=== PATIENT | female | born 1955 | race Two or more races ===

== ENCOUNTER 2025-05-26 13:56 | Observation (INO) ==
--- NOTE | 2025-05-26 14:27 | Emergency Department Note ---
Impression & Plan Ambulatory dysfunction, Lumbar transverse process fracture, Fracture of left superior pubic ramus ED Provider Note HISTORY OF PRESENT ILLNESS: Patient is a 70-year-old female presenting with low back pain and ambulatory dysfunction. Patient fell 3 days ago. She was found to have a closed left olecranon fracture. Family at bedside reports that she has been unable to ambulate in the last 3 days secondary to pain in her low back. She reportedly was at [facility] today to have surgery on her left elbow. She underwent surgery and she was referred here secondary to her inability to ambulate. Family reports that patient is normally ambulatory without any assistive devices at home. She is currently complaining of pain in her low back that radiates diffusely to either side. She is also complaining of pain in her left inguinal region. Unknown if she hit her head when she fell 3 days ago. ROS: as above PHYSICAL EXAM: Constitutional: Patient appears in no acute distress. HENT: Head: Normocephalic and atraumatic. Eyes: EOMI, PERRL Mouth/Throat: Mucous membranes moist. Neck: Trachea midline. Neck supple. No midline cervical spine tenderness to palpation. Cardiovascular: RRR, No murmurs, rubs or gallops. Intact distal pulses. Pulmonary/Chest: No respiratory distress. Breath sounds clear and equal bilaterally. No wheezes or rales. Abdominal: Abdomen soft, no tenderness, rebound or guarding. Back: Lower lumbar midline tenderness to palpation. No step-offs or deformities. No open wounds. Patient unable to straight leg raise bilaterally secondary to pain. Musculoskeletal: No edema, tenderness or deformity noted. Skin: Warm and dry. No rash, erythema, pallor or cyanosis Psychiatric: Appropriate mood and affect for situation. Neurological: Alert and keenly responsive. CN II-XII grossly intact MDM: - Vitals signs stable. - History obtained via patient's family, given patient does not speak Mohawk. History as above. - Chronic conditions affecting care: None - Differential diagnoses include, but are not limited to: Compression fracture; transverse process fracture; femur fracture; pelvic fracture; contusion; muscle spasm - Order placed for continuous cardiac monitoring. At this time, monitor showed rate of 75 bpm with normal sinus rhythm, per my interpretation. - External medical records reviewed. - Laboratory workup interpreted by myself showed normal WBC; anemia (Hgb 9.1); stable electrolytes - Patient initially given 25 mcg IV fentanyl. After going for CT, pain back to 8/10. Given 50 mcg IV fentanyl. - CT head wo contrast negative for acute intracranial pathology - CT cervical spine wo contrast negative for acute pathology - CT lumbar spine wo contrast showed acute fractures of the left L2, L3 and L4 transverse processes - CT pelvis wo contrast showed subtle nondisplaced fracture of the right sacral ala and nondisplaced fracture of the left superior pubic ramus. - Discussed spinal fractures with orthopedic spinal surgeon on-call, Dr. Luther, at 15:27. He reports that these fractures are nonoperative and recommend pain management and PT/OT assessment. - Patient still having significant pain in the emergency department. She has been nonambulatory for the last 3 days secondary to pain. Will plan to admit to hospitalist service for pain management and PT/OT assessment. Did discuss this with the patient's family at bedside who are agreeable. Patient would be agreeable for placement in rehab if that was deemed necessary. - Discussion was had with renal case manager about patient's case and need for admission - Hospitalist, Dr. Chavez, consulted for admission at 16:16. - Patient admitted to [facility] hospitalist service for further evaluation and management. ASSESSMENT AND PLAN: Diagnosis: Ambulatory dysfunction; multiple lumbar transverse process fractures; fracture of left superior pubic ramus Plan: admit Past Med/Surg History Problem List (Updated 05/26/25 @ 16:13 by Ariadne Alexis MD) Fracture of left superior pubic ramus (Acute) Lumbar transverse process fracture (Acute) Ambulatory dysfunction (Acute) Fall at home (Acute) Closed olecranon fracture (Acute) Social History Smoking Status: Former smoker Preferred Language: Mohawk Feels Safe at Home: Yes Home Meds Previous Rx's Medication Instructions Recorded oxycodone 5 mg tablet 5 mg PO Q6H PRN pain #14 tabs 05/24/25 Results & Data (ED) Vital Signs Vital Signs - 24 hr 05/26/25 14:00 05/26/25 14:40 05/26/25 14:41 Temperature 36.6 C Temperature Source Temporal Artery Scan Pulse Rate 73 Pulse Rate [Apical] 75 Pulse Strength [Apical] Normal Respiratory Rate 18 17 Respiratory Effort / Characteristics Non-Labored Spontaneous Respiratory Depth Normal Respiratory Pattern Regular Blood Pressure 112/55 L Blood Pressure [Right Arm] 121/70 Blood Pressure Mean 74 Blood Pressure Mean [Right Arm] 87 Pulse Oximetry 91 91 92 Oxygen Delivery Method Room Air Room Air Room Air Sepsis Recent Fever Within 48 Hours No Sepsis New/Unexplained Change in Mental Status No Sepsis Action Taken by Nursing No Action Required Laboratory Data 05/26/25 14:30 05/26/25 14:30 Lab Results 05/26/25 Range/Units 14:30 WBC 7.63 (4.8-10.8) K/ul RBC 3.20 L (4.20-5.40) M/uL Hgb 9.1 L (12.0-16.0) g/dl Hct 29.4 L (37.0-47.0) % MCV 91.9 (80.0-100.0) fL MCH 28.4 (25.0-34.0) pg MCHC 31.0 L (32.0-36.0) g/dL RDW Std Deviation 50.4 H (36.4-46.3) fL RDW Coeff of Payal 14.8 H (11.5-14.5) % Plt Count 80 L (130-400) K/uL MPV 12.1 (9.4-12.4) fL Immature Gran % (Auto) 0.5 % Neut % (Auto) 82.1 % Lymph % (Auto) 9.8 % Falls % (Auto) 4.5 % Eos % (Auto) 2.2 % Baso % (Auto) 0.9 % Neut # (Auto) 6.26 (1.40-6.50) K/uL Lymph # (Auto) 0.75 L (1.20-3.40) K/uL Falls # (Auto) 0.34 (0.11-0.59) K/uL Eos # (Auto) 0.17 (0.00-0.50) K/uL Baso # (Auto) 0.07 (0.00-0.20) K/uL Immature Gran # (Auto) 0.04 (0.01-0.20) K/uL Platelet Estimate Decreased L (Normal) Sodium 143 (136-145) mmol/L Potassium 3.8 (3.5-5.1) mmol/L Chloride 109 H (98-107) mmol/L Carbon Dioxide 26 (21-32) mmol/L Anion Gap 8 (3-11) BUN 14 (6-23) mg/dl Creatinine 0.74 (0.6-1.2) mg/dl Est Cr Clr Drug Dosing 61.7 ml/min eGFR 85.91 BUN/Creatinine Ratio 18.9 (10-20) Glucose 105 H (70-99(Fasting)) mg/dl Calcium 8.0 L (8.6-10.3) mg/dl Total Bilirubin 0.4 (0.2-1.0) mg/dl AST 34 (13-39) U/L ALT 22 (7-52) U/L Alkaline Phosphatase 59 (34-104) U/L Total Protein 6.1 (6.0-8.3) gm/dl Albumin 3.4 (3.4-5.0) gm/dl Globulin 2.7 (2.5-4.0) gm/dl Albumin/Globulin Ratio 1.3 (0.9-2) Administered Medications Discontinued Medications Fentanyl Citrate (Fentanyl Citrate Pf 100 Mcg/2 Ml Vial) 25 mcg IV NOW STA Stop: 05/26/25 14:23 Last Admin: 05/26/25 14:37 Dose: 25 mcg Documented By: ISABEL Fentanyl Citrate (Fentanyl Citrate Pf 100 Mcg/2 Ml Vial) 50 mcg IV NOW STA Stop: 05/26/25 15:28 Last Admin: 05/26/25 15:37 Dose: 50 mcg Documented By: TAHIRA Imaging Data Radiologist's Impression: Lumbar Spine CT 05/26/25 14:22 CT OF THE LUMBAR SPINE CLINICAL HISTORY: acute low back pain trauma COMPARISON STUDY: No previous studies for comparison. TECHNIQUE: Helical axial images of the lumbar spine were obtained. Sagittal and coronal reconstructions were viewed. Automated exposure control was utilized for the study. A dose lowering technique was utilized adhering to the principles of ALARA. FINDINGS: There are acute fractures of the left L2, L3, and L4 transverse processes. No vertebral body fractures are visualized. There is no evidence of spinal stenosis. No paraspinal hematomas are visualized. IMPRESSION: 1. Acute fractures of the left L2, L3, and L4 transverse processes ACT 112: Negative or not required by law. Electronically signed by: Robles Moe M.D. 05/26/2025 3:[address] 05/26/25 14:22 CT SCAN OF THE PELVIS WITHOUT IV CONTRAST CLINICAL HISTORY: Low back pain. Left hip pain. COMPARISON STUDY: X-rays of the right hip and pelvis dated 05/24/2025. TECHNIQUE: CT scan of the pelvis is performed from the pelvic inlet to the proximal femora. Images are reviewed in the axial, sagittal, and coronal planes. IV contrast was not administered for this examination. A dose lowering technique was utilized adhering to the principles of ALARA. FINDINGS: The skeletal structures are osteopenic. There is a subtle nondisplaced fracture of the right sacral ala, best seen on axial images #221-276. This reaches the sacroiliac joint. There is a parasymphyseal fracture of the superior left pubic ramus seen on axial image #545 and coronal image #23. No additional acute fracture is seen involving the hips or bony pelvis. There is also a nondisplaced left transverse process fracture of L4 seen on image #13. There is no avascular necrosis of the femoral heads. There is only mild degenerative change seen in the hips. No lytic or blastic lesion is seen. The regional musculature is normal as visualized. The bladder is distended but otherwise normal in appearance. The uterus and adnexa are normal as imaged. Imaged bowel loops show no evidence of obstruction. There is no free fluid in the pelvis. Atherosclerotic calcification is seen in the iliac vessels. There is a fat- containing infraumbilical hernia. There is no pelvic sidewall or inguinal lymphadenopathy. IMPRESSION: 1. Subtle nondisplaced fracture of the right sacral ala. 2. Nondisplaced fracture of the parasymphyseal left superior pubic ramus. 3. Left transverse process fracture of L4. 4. The proximal femora are intact. 5. Additional findings as above. ACT 112: Negative or not required by law. Electronically signed by: Tony Villarreal M.D. 05/26/2025 3:[address] 05/26/25 14:27 CT SCAN OF THE BRAIN WITHOUT IV CONTRAST CLINICAL HISTORY: COMPARISON STUDY: Head trauma TECHNIQUE: Unenhanced axial CT scan of the brain was performed from the vertex to the skull base. A dose lowering technique was utilized adhering to the principles of ALARA. CT DOSE: FINDINGS: There is basal ganglial mineralization. No intra or extra-axial mass lesions are visualized. There is no CT evidence of acute cortical infarction. There is no hydrocephalus. There is no midline shift. There is no evidence of acute hemorrhage. Hypodensities within the periventricular white matter likely on a small vessel ischemic basis. No orbital lesions are visualized. No calvarial fractures are identified. IMPRESSION: No acute intracranial findings. ACT 112: Negative or not required by law. Electronically signed by: Robles Moe M.D. 05/26/2025 3:[address] 05/26/25 14:32 CT SCAN OF THE CERVICAL SPINE CLINICAL HISTORY: Fall COMPARISON STUDY: No priors TECHNIQUE: CT scan of the cervical spine is performed from the skull base to the upper thoracic spine. Images are reviewed in the axial, sagittal, and coronal planes. IV contrast was not administered for this examination. A dose lowering technique was utilized adhering to the principles of ALARA. CT DOSE: 2753.04 mGy.cm FINDINGS: Skeletal structures: The skeletal structures are osteopenic. There is no evidence of fracture or subluxation involving the cervical spine. Vertebral body height and alignment are maintained. There is straightening of cervical lordosis. Small anterior osteophytes are noted in the lower cervical region. The odontoid process and lateral masses are intact. The atlantoaxial articulation is preserved noting productive degenerative change. The spinous processes appear intact. Intervertebral discs: There is moderate disc space narrowing at C5-C6. The remaining disc spaces are maintained. Central canal: A posterior disc osteophyte complex at C5-C6 may contribute to mild acquired compromise the central canal. Soft tissues: The prevertebral and paraspinous soft tissues are within normal limits. Atherosclerotic calcification is seen in the carotid bulbs. Calvarium: The visualized calvarium at the skull base appears intact. Brain parenchyma: Partially visualized brain parenchyma at the skull base is within normal limits. Sinuses and mastoids: The visualized paranasal sinuses are clear. The mastoid air cells are well pneumatized. Lung apices: Clear as visualized. IMPRESSION: There is no evidence of fracture or subluxation involving the cervical spine. ACT 112: Negative or not required by law. Electronically signed by: Tony Villarreal M.D. 05/26/2025 3:16 PM Discharge Plan Visit Data Chief Complaint: Leg Weakness, Bilateral Stated Complaint: LOST OF MOVEMENT IN HER LEGS ED Provider: Ariadne Alexis Discharge Problem: Ambulatory dysfunction, Lumbar transverse process fracture, Fracture of left superior pubic ramus Condition: Fair Forms Stand Alone Forms: [facility] Prescriptions Prescriptions: No Action oxycodone 5 mg tablet 5 mg PO Q6H PRN (Reason: pain) Qty: 14 0RF Referrals Referrals: PCP,NO [Primary Care Provider] -
[2025-05-26 14:50] LABS: Hematocrit (blood only) 29.4 % (37.0-47.0); Hemoglobin 9.1 g/dl (12.0-16.0); Mean Corpuscular Hemoglobin 28.4 pg (25.0-34.0); Mean Corpuscular Volume 91.9 fL (80.0-100.0); RDW Standard Deviation 50.4 fL (36.4-46.3); Red Blood Count 3.20 M/uL (4.20-5.40); White Blood Count 7.63 K/ul (4.8-10.8)
[2025-05-26 14:57] LABS: Alanine Aminotransferase 22.0 U/L (7-52); Albumin Globulin Ratio 1.3 (0.9-2); Albumin Level 3.4 gm/dl (3.4-5.0); Alkaline Phosphatase 59.0 U/L (34-104); Anion Gap 8.0 (3-11); Bilirubin,Total 0.4 mg/dl (0.2-1.0); Blood Urea Nitrogen 14.0 mg/dl (6-23); Calcium 8.0 mg/dl (8.6-10.3); Carbon Dioxide 26.0 mmol/L (21-32); Chloride 109.0 mmol/L (98-107); Creatinine Clr Calc Pharmacy 61.7 ml/min; Globulin 2.7 gm/dl (2.5-4.0); Glucose 105.0 mg/dl (70-99(Fasting)); Potassium 3.8 mmol/L (3.5-5.1); Sodium 143.0 mmol/L (136-145); Total Protein 6.1 gm/dl (6.0-8.3)
--- NOTE | 2025-05-26 15:18 | CT Scan Report ---
CT SCAN OF THE CERVICAL SPINE CLINICAL HISTORY: Fall COMPARISON STUDY: No priors TECHNIQUE: CT scan of the cervical spine is performed from the skull base to the upper thoracic spine . Images are reviewed in the axial, sagittal, and coronal planes. IV contrast was not administered fo r this examination. A dose lowering technique was utilized adhering to the principles of ALARA. CT DOSE: 2753.04 mGy.cm FINDINGS: Skeletal structures: The skeletal structures are osteopenic. There is no evidence of fracture or subl uxation involving the cervical spine. Vertebral body height and alignment are maintained. There is s traightening of cervical lordosis. Small anterior osteophytes are noted in the lower cervical region. The odontoid process and lateral masses are intact. The atlantoaxial articulation is preserved notin g productive degenerative change. The spinous processes appear intact. Intervertebral discs: There is moderate disc space narrowing at C5-C6. The remaining disc spaces are maintained. Central canal: A posterior disc osteophyte complex at C5-C6 may contribute to mild acquired compromis e the central canal. Soft tissues: The prevertebral and paraspinous soft tissues are within normal limits. Atherosclerotic calcification is seen in the carotid bulbs. Calvarium: The visualized calvarium at the skull base appears intact. Brain parenchyma: Partially visualized brain parenchyma at the skull base is within normal limits. Sinuses and mastoids: The visualized paranasal sinuses are clear. The mastoid air cells are well pneu matized. Lung apices: Clear as visualized. IMPRESSION: There is no evidence of fracture or subluxation involving the cervical spine. ACT 112: Negative or not required by law. Electronically signed by: Tony Villarreal M.D. 05/26/2025 3:16 PM
--- NOTE | 2025-05-26 15:19 | CT Scan Report ---
CT SCAN OF THE BRAIN WITHOUT IV CONTRAST CLINICAL HISTORY: COMPARISON STUDY: Head trauma TECHNIQUE: Unenhanced axial CT scan of the brain was performed from the vertex to the skull base. A dose lowering technique was utilized adhering to the principles of ALARA. CT DOSE: FINDINGS: There is basal ganglial mineralization. No intra or extra-axial mass lesions are visualized. There is no CT evidence of acute cortical infarction. There is no hydrocephalus. There is no midline shift. T here is no evidence of acute hemorrhage. Hypodensities within the periventricular white matter likely on a small vessel ischemic basis. No orbital lesions are visualized. No calvarial fractures are iden tified. IMPRESSION: No acute intracranial findings. ACT 112: Negative or not required by law. Electronically signed by: Robles Moe M.D. 05/26/2025 3:18 PM
--- NOTE | 2025-05-26 15:25 | CT Scan Report ---
CT OF THE LUMBAR SPINE CLINICAL HISTORY: acute low back pain trauma COMPARISON STUDY: No previous studies for comparison. TECHNIQUE: Helical axial images of the lumbar spine were obtained. Sagittal and coronal reconstruct ions were viewed. Automated exposure control was utilized for the study. A dose lowering technique was utilized adhering to the principles of ALARA. FINDINGS: There are acute fractures of the left L2, L3, and L4 transverse processes. No vertebral body fractures are visualized. There is no evidence of spinal stenosis. No paraspinal hematomas are visualized. IMPRESSION: 1. Acute fractures of the left L2, L3, and L4 transverse processes ACT 112: Negative or not required by law. Electronically signed by: Robles Moe M.D. 05/26/2025 3:22 PM
--- NOTE | 2025-05-26 15:27 | CT Scan Report ---
CT SCAN OF THE PELVIS WITHOUT IV CONTRAST CLINICAL HISTORY: Low back pain. Left hip pain. COMPARISON STUDY: X-rays of the right hip and pelvis dated 05/24/2025. TECHNIQUE: CT scan of the pelvis is performed from the pelvic inlet to the proximal femora. Images a re reviewed in the axial, sagittal, and coronal planes. IV contrast was not administered for this exa mination. A dose lowering technique was utilized adhering to the principles of ALARA. FINDINGS: The skeletal structures are osteopenic. There is a subtle nondisplaced fracture of the righ t sacral ala, best seen on axial images #221-276. This reaches the sacroiliac joint. There is a zachery ymphyseal fracture of the superior left pubic ramus seen on axial image #545 and coronal image #23. N o additional acute fracture is seen involving the hips or bony pelvis. There is also a nondisplaced l eft transverse process fracture of L4 seen on image #13. There is no avascular necrosis of the femora l heads. There is only mild degenerative change seen in the hips. No lytic or blastic lesion is seen. The regional musculature is normal as visualized. The bladder is distended but otherwise normal in a ppearance. The uterus and adnexa are normal as imaged. Imaged bowel loops show no evidence of obstruc tion. There is no free fluid in the pelvis. Atherosclerotic calcification is seen in the iliac vessel s. There is a fat-containing infraumbilical hernia. There is no pelvic sidewall or inguinal lymphaden opathy. IMPRESSION: 1. Subtle nondisplaced fracture of the right sacral ala. 2. Nondisplaced fracture of the parasymphyseal left superior pubic ramus. 3. Left transverse process fracture of L4. 4. The proximal femora are intact. 5. Additional findings as above. ACT 112: Negative or not required by law. Electronically signed by: Tony Villarreal M.D. 05/26/2025 3:26 PM
[2025-05-26 15:38] LABS: Platelet Count 80 K/uL (130-400)
[2025-05-26 15:39] LABS: Immature Granulocytes # (auto) 0.04 K/uL (0.01-0.20); Immature Granulocytes % (auto) 0.5 %
--- NOTE | 2025-05-26 17:33 | History & Physical Report ---
Date of Service May 26, 2025 Assessment & Plan (1) Fracture of left superior pubic ramus: (2) Lumbar transverse process fracture: (3) Ambulatory dysfunction: (4) Osteoporosis: (5) Inflammatory bowel disease: (6) Anxiety: Plan Osteoporotic fracturesolecranon, transverse processes of lumbar spine, sacrum, pubic ramus - olecranon fracture is surgically repaired. The other fractures are nonsurgical - outpatient bone health treatment with the exception of starting calcium plus vitamin D - pain controllidocaine patch lumbar area, Miacalcin nasal spray daily, scheduled Tylenol, oxycodone as needed moderate pain, Dilaudid as needed severe pain. Held on any NSAIDs due to her anaphylactic reaction to diclofenac (confirmed by son-in-law) - TLSO brace to see if it helps with the lumbar type pain - PT/OT eval and treat, discussed high probability of needing rehab inflammatory bowel disease - mesalamine 800 mg 3 times daily as per home dosing anxiety - sertraline 150 mg daily, Xanax 1 mg at bedtime as needed insomnia, as per home dosing (over the long-term, probably will want to consider trying a different medication for sleep to start to get away from the alprazolam) DVT prophylaxis - Lovenox thrombocytopenia - not low enough to preclude Lovenox, etiology not entirely clear. Does not have transaminitis or other findings to suggest tickborne illness. Follow. Anemia none of her fractures would really be accompanied by significant amount of blood loss, I suspect this is probably chronicfollow-up hemoglobin in the morning. Check iron studies/B12. History of Present Illness Chief Complaint: Unable to walk Primary Care Provider: NO PCP patient is a very pleasant 70-year-old female who presents unable to walk. She speaks Bengali, she prefers right now using her daughter as her it lead, I did offer medical billing supervisor services. Patient has recently come to the [place] to live with her daughter. She was cleaning in the house and was up on about a 2 step ladder about 3 days ago, fell striking her arm as well as her side. She came promptly to the ER and was found to have an olecranon fracture. She was sent home with orthopedics follow-up. Unfortunately she has been unable to walk really without tremendous pain sinceto the point where really functionally she cannot walk. The pain is predominantly in her back and wraps around to the front, in her pelvis, and obviously in her elbow beforehowever, she just had surgery on her elbow and right now she still has a nerve block keeping the whole area numb. Otherwise she has a degree of pain across her upper abdomen that makes it feel a little bit tight to breathe, but she denies any actual shortness of breath. She seems to have been in her usual state of health before the fall. She had surgery, and after surgery she was still in a tremendous amount of pain in her back and pelvis and unable to walk, and she was then directed from the surgery center here to the ER. Past medical history includes anxiety/depression, inflammatory bowel disease, osteoporosis past surgical history includes a prior orthopedic procedure on her left arm, and cholecystectomy no alcohol no tobacco Allergies Allergy/AdvReac Type Severity Reaction Status Date / Time diclofenac Allergy Severe Anaphylaxis Verified 05/26/25 17:54 Home Medications Medication Instructions Recorded Confirmed Type oxycodone 5 mg tablet 5 mg PO Q6H PRN pain #14 tabs 05/24/25 Rx Past Med/Surg History Problem List (Updated 05/26/25 @ 18:00 by Rocky Chavez DO) Anxiety Inflammatory bowel disease Osteoporosis Fracture of left superior pubic ramus (Acute) Lumbar transverse process fracture (Acute) Ambulatory dysfunction (Acute) Fall at home (Acute) Closed olecranon fracture (Acute) Social History Smoking Status: Former smoker Preferred Language: Macanese Feels Safe at Home: Yes Review of Systems Review of Systems: All systems reviewed & are unremarkable except as noted in HPI & below Physical Exam Physical Exam: awake alert oriented pleasant but laying very still in the bed. HEENT normocephalic atraumatic mucous membranes moist. Lungs are clear to auscultation bilaterally no rales rhonchi or wheeze with good effort. Cardio is regular without rubs murmurs or gallops. Abdomen is soft nondistended nontender no masses organomegaly. Extremities without sinus clubbing or edema no calf tenderness. Neuro shows cranial nerves II through XII to be grossly intact gross motor and sensory intact with the exception of her left arm that is still numb from a nerve block. Skin shows no rashes no pallor or icterus. Labs and diagnostics noted. Results & Data Results & Data Vital Signs (Past 12 Hours) Vital Signs Temp Pulse Pulse Resp BP BP Pulse Ox 05/26/25 16:00 73 14 135/71 98 05/26/25 14:41 92 05/26/25 14:40 75 17 121/70 91 05/26/25 14:00 97.9 F 73 18 112/55 L 91 O2 Del Method 05/26/25 16:00 05/26/25 14:41 Room Air 05/26/25 14:40 Room Air 05/26/25 14:00 Room Air Code Status & VTE Plan VTE Prophylaxis Plan VTE Prophylaxis will be ordered: Yes PG Care Time/CCT Total # of Minutes Spent Total Time Spent with Patient: Total time spent is greater than 50% in coordination of care (as documented) at patient's floor/unit and/or counseling patient: Coding Level of Care Code 39343 INT INP/OBS CARE 3/75MIN Diagnoses Fracture of left superior pubic ramus S32.512A Lumbar transverse process fracture S32.009A Ambulatory dysfunction R26.2 Osteoporosis M81.0 Inflammatory bowel disease K52.9 Anxiety F41.9
[2025-05-26] MEDS: HYDROmorphone INJ 0.5 MG/0.5 ML SYR IV STA (18:55)
[2025-05-26] MEDS ORDERED: MAGNESIUM HYDROXIDE SUSP 30 ML UDC PO PRN (21:56)
[2025-05-26] MEDS ORDERED: ONDANSETRON INJ 2 MG/ML 2 ML VIAL IV PRN (21:56)
[2025-05-26] MEDS ORDERED: ALUMINUM/MAGNESIUM SUSP 30 ML UDC PO PRN (21:56)
[2025-05-26] MEDS ORDERED: POLYETHYLENE (MIRALAX) 17 GM PACK PO PRN (21:56)
[2025-05-26] MEDS: ACETAMINOPHEN 325 MG TAB PO SCH (22:45)
[2025-05-26] MEDS: MESALAMINE 800 MG TABCR PO SCH (22:46)
[2025-05-26] MEDS: CALCIUM 600MG + VIT D 400 IU TAB PO SCH (22:47)
[2025-05-26] MEDS: HYDROmorphone INJ 0.5 MG/0.5 ML SYR IV PRN (22:59)
[2025-05-26] MEDS: LIDOCAINE 5% 1 PATCH TD SCH (23:37)
[2025-05-27 07:28] LABS: Hematocrit (blood only) 25.9 % (37.0-47.0); Hemoglobin 8.5 g/dl (12.0-16.0); Immature Granulocytes # (auto) 0.04 K/uL (0.01-0.20); Immature Granulocytes % (auto) 0.5 %; Mean Corpuscular Hemoglobin 29.1 pg (25.0-34.0); Mean Corpuscular Volume 88.7 fL (80.0-100.0); Platelet Count 83 K/uL (130-400); RDW Standard Deviation 49.3 fL (36.4-46.3); Red Blood Count 2.92 M/uL (4.20-5.40); White Blood Count 7.72 K/ul (4.8-10.8)
[2025-05-27 07:51] LABS: Anion Gap 7.0 (3-11); Blood Urea Nitrogen 12.0 mg/dl (6-23); Calcium 8.7 mg/dl (8.6-10.3); Carbon Dioxide 27.0 mmol/L (21-32); Chloride 106.0 mmol/L (98-107); Creatinine Clr Calc Pharmacy 73.1 ml/min; Glucose 111.0 mg/dl (70-99(Fasting)); Iron 27.0 mcg/dl (35-150); Potassium 3.7 mmol/L (3.5-5.1); Sodium 140.0 mmol/L (136-145); Total Iron Binding Cap Calc 206.0 mcg/dl (250-450); Transferrin 147.0 mg/dl (200-360); Transferrin (FE) Percent Satur 13.0 % (15-50)
[2025-05-27 08:10] LABS: Ferritin 224.9 ng/ml (8-388)
[2025-05-27] MEDS: CALCITONIN SALMON NA 200 IU/AC 3.7 ML BTL SCH (08:25)
[2025-05-27] MEDS: SERTRALINE HCL 50 MG TABLET PO SCH (08:25)
[2025-05-27] MEDS: ENOXAPARIN INJ 40 MG/0.4 ML SYR SQ SCH (08:26)
--- NOTE | 2025-05-27 08:48 | Hospitalist Progress Note ---
Date of Service May 27, 2025 Assessment & Plan (1) Anxiety: (2) Inflammatory bowel disease: (3) Osteoporosis: (4) Fracture of left superior pubic ramus: Plan José is a very pleasant [place]rugu[place] speaking 70 Y O female with PMH of IBD and Anxiety disorder presented with low back pain and ambulatory dysfunction. She fell 3 days ago and was found to have closed left olecranon fracture. Imaging reveals fracture in multiple site including acute fractures of left L2, L3 and L4 Transverse processes , Non displaced fracture of right sacral miguel, parasymphyseal left superior pubic ramus. Olecranon fracture is surgically repaired. The other fractures are nonsurgical. She is currently being admitted for pain management likely due to multiple fractures. #Multiple osteoporotic fractures - pain controllidocaine patch lumbar area, Miacalcin nasal spray daily, scheduled Tylenol, oxycodone as needed moderate pain, Dilaudid 1mg every 4 hr. Held on any NSAIDs due to her anaphylactic reaction to diclofenac (confirmed by son-in-law) - TLSO brace to see if it helps with the lumbar type pain - PT/OT eval and treat, discussed high probability of needing rehab #Inflammatory bowel disease - mesalamine 800 mg 3 times daily as per home dosing # anxiety - sertraline 150 mg daily, Xanax 1 mg at bedtime as needed insomnia, as per home dosing (over the long-term, probably will want to consider trying a different medication for sleep to start to get away from the alprazolam) #Thromobocytopenia -Plt count : 83 today -Not enough to preclude Lovenox # Anemia none of her fractures would really be accompanied by significant amount of blood loss, I suspect this is probably chronicfollow-up hemoglobin in the morning. Check iron studies/B12. Dispo: med/surg Code: full code DVT Prophylaxis: Lovenox Admission and Anticipated Discharge Date Admission Date: May 26, 2025 Supervising Physician Co-Signing Physician Notes I personally examined the patient and verified all alvarez points of history and exam, discussed case, and agree with decision making with Dr Cleemnt notes that while she still has a good bit of pain with movement, she feels significantly better than before, and the TLSO brace seems to be helping quite a bit. She is pleased with how she did with therapy (although on review of therapy notes, her functional status is currently quite limited. Vitals noted, in general she is awake and alert pleasant no distress. HEENT normocephalic atraumatic mucous membranes moist. Breathing unlabored no accessory muscle use good effort. Skin without rashes pallor or icterus. Neuro without focal deficits. Osteoporotic fractures of L-spine transverse processes, sacral rosalind, pubic ramuspain control, supportive care, PT/OT, right now looks like she would almost certainly need rehab. Continue to follow. Outpatient bone health workup and treatment. Otherwise as above. Subjective Patient was seen in the bedside this morning. [place] translator/interpreter was used for communication. She mentioned that her pain is about the same as yesterday. She would like to get increased dose of pain medicine. Explained her about significance of Lovenox while at hospital. She denied any new concerns/questions Review of Systems Review of Systems: All systems reviewed & are unremarkable except as noted in HPI & below Physical Exam Physical Exam: awake alert oriented pleasant but laying very still in the bed. HEENT normocephalic atraumatic mucous membranes moist. Lungs are clear to auscultation bilaterally no rales rhonchi or wheeze with good effort. Cardio is regular without rubs murmurs or gallops. Abdomen is soft nondistended nontender no masses organomegaly. Extremities without sinus clubbing or edema no calf tenderness. Neuro shows cranial nerves II through XII to be grossly intact gross motor and sensory intact with the exception of her left arm that is still numb from a nerve block. Skin shows no rashes no pallor or icterus. Labs and diagnostics noted. Results & Data Results & Data Vital Signs (Past 12 Hours) Vital Signs Temp Pulse Pulse Resp BP Pulse Ox O2 Del Method 05/27/25 07:04 36.6 C 90 16 110/68 92 Room Air 05/26/25 21:45 Nasal Cannula 05/26/25 21:45 36.5 C 88 16 103/59 L 93 Room Air 05/26/25 20:48 85 28 H O2 Flow Rate 05/27/25 07:04 05/26/25 21:45 2 05/26/25 21:45 05/26/25 20:48 Resident Activity Tracking Resident Involvement: Resident Care Provided Care Provided: Adult Hospital Medicine
[2025-05-27] MEDS: REMOVE LIDODERM PATCH SCH (10:15)
[2025-05-27] MEDS: CYANOCOBALAMIN (B-12) 500 MCG TABLET PO SCH (10:15)
[2025-05-27] MEDS: FERROUS GLUCONATE 324 MG TAB PO SCH (10:15)
[2025-05-27] MEDS: CHOLECALCIFEROL 25 MCG (1000 UNITS) TAB PO SCH (10:15)
--- NOTE | 2025-05-27 16:02 | Billing Data ---
Date of Service May 27, 2025 Coding Level of Care Code 71295 SUB INP/OBS CARE MIN
[2025-05-27] MEDS: HYDROmorphone INJ 1 MG/ML SYRINGE IV PRN (18:56)
--- NOTE | 2025-05-28 06:50 | Hospitalist Progress Note ---
Date of Service May 28, 2025 Assessment & Plan (1) Anxiety: (2) Inflammatory bowel disease: (3) Osteoporosis: (4) Fracture of left superior pubic ramus: Plan José is a very pleasant [place]ian speaking 70 Y O female with PMH of IBD and Anxiety disorder presented with low back pain and ambulatory dysfunction. She fell 3 days ago and was found to have closed left olecranon fracture. Imaging reveals fracture in multiple sites including acute fractures of left L2, L3 and L4 Transverse processes , Non displaced fracture of right sacral miguel, parasymphyseal left superior pubic ramus. Olecranon fracture is surgically repaired. The other fractures are nonsurgical. She is currently being admitted for pain management due to multiple osteoporotic fractures. #Multiple osteoporotic fractures - For pain controllidocaine patch lumbar area, Miacalcin nasal spray daily, scheduled Tylenol, oxycodone as needed moderate pain, Dilaudid 1mg every 4 hr. Held on any NSAIDs due to her anaphylactic reaction to diclofenac (confirmed by son-in-law) - TLSO brace . She reports its helping for her lumbar pain - PT/OT eval . Recommend intensive acute rehab #Inflammatory bowel disease - mesalamine 800 mg 3 times daily as per home dosing # Anxiety - sertraline 150 mg daily, Xanax 1 mg at bedtime as needed insomnia, as per home dosing (over the long-term, probably will want to consider trying a different medication for sleep to start to get away from the alprazolam) #Thromobocytopenia -Plt count improved to 99 from 83 - Not in a range to preclude Lovenox # Anemia none of her fractures would really be accompanied by significant amount of blood loss -Hgb 8.7 from 8.5 -Low iron suggestive of Iron deficiency anemia.On Ferrous Gluconate 324 mg PO qAM. CBC in the AM Dispo: med/surg Code: full code DVT Prophylaxis: Lovenox Admission and Anticipated Discharge Date Admission Date: May 26, 2025 Supervising Physician Co-Signing Physician Notes I personally examined the patient and verified all alvarez points of history and exam, discussed case, and agree with decision making with Dr Clement Patient seen multiple times today. Frustratingly, water sander for [place] was attempted many times with no success. I apologized sincerely to patient and family, and they expressed a good understanding. Daughter was gracious enough to act as water sander (which was their preferred method on the first day we met). Patient doing better. Pain under better overall controlstill hurts a lot when she moves but TLSO brace helps a lot. Was able to walk with physical therapydoing better than expected, but still looking like she will need rehab. Vitals noted, in general she is awake alert pleasant no distress. HEENT normocephalic atraumatic mucous membranes moist. Breathing unlabored no accessory muscle use good effort. Skin without rashes pallor or icterus. Son-in-law shows me a video of her walking (I had also discussed with physical therapy who noted they were quite pleased with how she did) family was worried about how she was moving her left legappears to be antalgic not neuromuscularshe moves a few inches readjust/moves a few inches readjusts. vitals noted, in general she is awake and alert pleasant no distress. HEENT normocephalic atraumatic mucous membranes moist. Breathing unlabored no accessory muscle use good effort. Skin without rashes pallor or icterus. Neuro without focal deficits. Osteoporotic fractures of L-spine transverse processes, sacral rosalind, pubic ramuspain control, supportive care, PT/OT, right now looks like she would almost certainly need rehab. Continue to follow. pain control improving. Outpatient bone health workup and treatment. Otherwise as above. Subjective Patient was seen in the bedside this morning. [place] water sander was used for communication. She mentioned that her pain is still significant. More aggravated when she goes to rest room or on movement. Improves on resting.She denied any new concerns/questions. No any overnight events. Review of Systems Review of Systems: As per HPI Physical Exam Physical Exam: Sleep comfortable on bed, has left arm sling Constitutional: WD/WN, vitals as above well developed; no acute distress Eyes: PERRL, conjunctivae normal, anicteric sclerae ENMT: external ear and nose normal, oropharynx normal Ears: no hearing impairment Neck: trachea midline, no thyromegaly trachea midline Respiratory: normal respiratory effort, lungs clear to auscultation normal respiratory effort and + respiratory distress; no labored breathing and no retractions Auscultation: lungs clear to auscultation bilaterally Cardiovascular: RRR, no murmur, no edema Rate/Rhythm: regular rate and regular rhythm Chest (Breasts): normal inspection/palpation of breasts Chest: normal inspection of chest Results & Data Results & Data Vital Signs (Past 12 Hours) Vital Signs Temp Pulse Resp BP Pulse Ox O2 Del Method O2 Flow Rate 05/27/25 23:18 37.3 C 92 H 16 110/68 93 Nasal Cannula 2 Resident Activity Tracking Resident Involvement: Resident Care Provided Care Provided: Adult Hospital Medicine
[2025-05-28 09:12] LABS: Hematocrit (blood only) 25.7 % (37.0-47.0); Hemoglobin 8.7 g/dl (12.0-16.0); Immature Granulocytes # (auto) 0.06 K/uL (0.01-0.20); Immature Granulocytes % (auto) 0.8 %; Mean Corpuscular Hemoglobin 30.2 pg (25.0-34.0); Mean Corpuscular Volume 89.2 fL (80.0-100.0); Platelet Count 99 K/uL (130-400); RDW Standard Deviation 48.0 fL (36.4-46.3); Red Blood Count 2.88 M/uL (4.20-5.40); White Blood Count 7.78 K/ul (4.8-10.8)
[2025-05-28] MEDS: POLYETHYLENE (MIRALAX) 17 GM PACK PO SCH (11:30)
--- NOTE | 2025-05-28 15:24 | Billing Data ---
Date of Service May 28, 2025 Coding Level of Care Code 61853 SUB INP/OBS CARE MIN
[2025-05-29 07:51] LABS: Hematocrit (blood only) 28.2 % (37.0-47.0); Hemoglobin 8.9 g/dl (12.0-16.0); Immature Granulocytes # (auto) 0.06 K/uL (0.01-0.20); Immature Granulocytes % (auto) 1.1 %; Mean Corpuscular Hemoglobin 28.4 pg (25.0-34.0); Mean Corpuscular Volume 90.1 fL (80.0-100.0); Platelet Count 108 K/uL (130-400); RDW Standard Deviation 49.0 fL (36.4-46.3); Red Blood Count 3.13 M/uL (4.20-5.40); White Blood Count 5.56 K/ul (4.8-10.8)
--- NOTE | 2025-05-29 07:59 | Hospitalist Progress Note ---
Date of Service May 29, 2025 Assessment & Plan (1) Anxiety: (2) Inflammatory bowel disease: (3) Osteoporosis: (4) Fracture of left superior pubic ramus: Plan José is a very pleasant [place]serrat[place] speaking 70 Y O female with PMH of IBD and Anxiety disorder presented with low back pain and ambulatory dysfunction. She fell 3 days ago and was found to have closed left olecranon fracture. Imaging reveals fracture in multiple sites including acute fractures of left L2, L3 and L4 Transverse processes , Non displaced fracture of right sacral miguel, parasymphyseal left superior pubic ramus. Olecranon fracture is surgically repaired. The other fractures are nonsurgical. She is currently being admitted for pain management due to multiple osteoporotic fractures. #Multiple osteoporotic fractures: - Admitted for pain contol Lidocaine patch lumbar area. Scheduled Tylenol Oxycodone as needed moderate pain Dilaudid 1mg every 4 hr. Held on any NSAIDs due to her anaphylactic reaction to diclofenac (confirmed by son-in-law) - Miacalcin nasal spray daily - TLSO brace . She reports its helping for her lumbar pain - PT/OT eval . Recommend intensive acute rehab #Inflammatory bowel disease - Mesalamine 800 mg 3 times daily as per home dosing # Anxiety - sertraline 150 mg daily, Xanax 1 mg at bedtime as needed insomnia, as per home dosing (over the long-term, probably will want to consider trying a different medication for sleep to start to get away from the alprazolam) #Thromobocytopenia -Plt count improved to 99 from 83 - Not in a range to preclude Lovenox # Anemia - STABLE Hgb 8.9 today. -Low iron suggestive of Iron deficiency anemia.On Ferrous Gluconate 324 mg PO qAM. CBC in the AM Dispo: PT recs Rehab. CM following. Code: full code DVT Prophylaxis: Lovenox Admission and Anticipated Discharge Date Admission Date: May 26, 2025 Supervising Physician Co-Signing Physician Notes I personally examined the patient and verified alvarez points of history and exam, discussed case, and agree with decision making and plan documented by Dr. Clement. Utilized [place] cooker sulfite at bedside today. Patient aware of rehabilitati on recommendations. Pain worse with movement but reported stable. Left message on daughter's voicemail for update. Subjective Patient was seen in the bedside this morning. [place] cooker sulfite([id number]) was used for communication. No any overnight events. Pain is getting better, this morning it was 6/10. She was curious about when shw can go home and how long she should stay in rehab before going home. otherwise no fever, SOB, CP. Pain is worse while moving around Physical Exam Physical Exam: Constitutional: Well appearing, No acute distress, PILCCOD: Negative HEENT: Atraumatic, Normocephalic, No conjunctival injection CVS: well perfused Respiratory: No increased work of breathing GI: Nondistended MSK: Brace on her left shoulder and body. Skin: Warm, Dry, No rashes Neuro: Alert, Oriented to TPP, No Focal deficit Psych: Mood and Affect congruent, Cooperative on exam Results & Data Results & Data Vital Signs (Past 12 Hours) Vital Signs Temp Pulse Resp BP Pulse Ox O2 Del Method O2 Flow Rate 05/29/25 07:01 37.3 C 78 16 95/60 L 92 Room Air 05/29/25 00:42 37.3 C 83 16 102/59 L 96 Nasal Cannula 2 Resident Activity Tracking Resident Involvement: Resident Care Provided Care Provided: Adult Hospital Medicine
--- NOTE | 2025-05-30 06:51 | Hospitalist Progress Note ---
Date of Service May 30, 2025 Assessment & Plan (1) Anxiety: (2) Inflammatory bowel disease: (3) Osteoporosis: (4) Fracture of left superior pubic ramus: Plan José is a very pleasant Sinhala speaking 70 Y O female with PMH of IBD and Anxiety disorder presented with low back pain and ambulatory dysfunction. She fell 3 days ago and was found to have closed left olecranon fracture. Imaging reveals fracture in multiple sites including acute fractures of left L2, L3 and L4 Transverse processes , Non displaced fracture of right sacral miguel, parasymphyseal left superior pubic ramus. Olecranon fracture is surgically repaired. The other fractures are nonsurgical. She is currently being admitted for pain management due to multiple osteoporotic fractures. OT/PT recommends rehab placement, CM following. #Multiple osteoporotic fractures: - Admitted for pain contol Lidocaine patch lumbar area. Scheduled Tylenol Oxycodone as needed moderate pain Dilaudid 1mg every 4 hr. Held on any NSAIDs due to her anaphylactic reaction to diclofenac (confirmed by son-in-law) - Miacalcin nasal spray daily - TLSO brace . She reports its helping for her lumbar pain - PT/OT eval . Recommend rehab #Inflammatory bowel disease - Mesalamine 800 mg 3 times daily as per home dosing # Anxiety - sertraline 150 mg daily, Xanax 1 mg at bedtime as needed insomnia, as per home dosing (over the long-term, probably will want to consider trying a different medication for sleep to start to get away from the alprazolam) #Thromobocytopenia -Plt count stable in 80-90. - Not in a range to preclude Lovenox # Anemia - STABLE Hgb 8.9 ( 05/29/2025) -Low iron suggestive of Iron deficiency anemia.On Ferrous Gluconate 324 mg PO qAM. CBC in the AM Dispo: PT recs Rehab. CM following. Code: full code DVT Prophylaxis: Lovenox Admission and Anticipated Discharge Date Admission Date: May 26, 2025 Supervising Physician Co-Signing Physician Notes I personally examined the patient and verified alvarez points of history and exam, discussed case, and agree with decision making and plan documented by Dr. Clement. Will plan to meet with patient and her daughter for discharge planning tomorrow considering rehabilitation not covered by insurance. Patient reports pain controlled with oral oxycodone. Subjective Patient was seen in the bedside this morning. No any overnight events. Stable course. Awaiting rehab placement Review of Systems Review of Systems: As per HPI Physical Exam Constitutional: WD/WN, vitals as above well developed; no acute distress Eyes: PERRL, conjunctivae normal, anicteric sclerae ENMT: external ear and nose normal, oropharynx normal Ears: no hearing impairment Neck: trachea midline, no thyromegaly trachea midline Respiratory: normal respiratory effort, lungs clear to auscultation normal respiratory effort and + respiratory distress; no labored breathing and no retractions Auscultation: lungs clear to auscultation bilaterally Cardiovascular: RRR, no murmur, no edema Rate/Rhythm: regular rate and regular rhythm Chest (Breasts): normal inspection/palpation of breasts Chest: normal inspection of chest Results & Data Results & Data Vital Signs (Past 12 Hours) Vital Signs Temp Pulse Resp BP Pulse Ox O2 Del Method 05/29/25 23:23 36.6 C 90 16 105/61 93 Room Air 05/29/25 20:00 Room Air Resident Activity Tracking Resident Involvement: Resident Care Provided Care Provided: Adult Hospital Medicine
[2025-05-30] MEDS: LOPERAMIDE HCL 2 MG CAP PO PRN (17:16)
[2025-05-31 07:12] VITALS: BP 120/60; RESP 18; TEMP 98.4; O2SAT 95
--- NOTE | 2025-05-31 15:11 | Discharge Summary ---
Date of Service May 31, 2025 Admission HPI Per Admitting Provider Patient is a very pleasant 70-year-old female who presents unable to walk. She speaks Barbadian, she prefers right now using her daughter as her park interpreter, I did offer medical technologist chief services. Patient has recently come to the [place] to live with her daughter. She was cleaning in the house and was up on about a 2 step ladder about 3 days ago, fell striking her arm as well as her side. She came promptly to the ER and was found to have an olecranon fracture. She was sent home with orthopedics follow-up. Unfortunately she has been unable to walk really without tremendous pain sinceto the point where really functionally she cannot walk. The pain is predominantly in her back and wraps around to the front, in her pelvis, and obviously in her elbow beforehowever, she just had surgery on her elbow and right now she still has a nerve block keeping the whole area numb. Otherwise she has a degree of pain across her upper abdomen that makes it feel a little bit tight to breathe, but she denies any actual shortness of breath. She seems to have been in her usual state of health before the fall. She had surgery, and after surgery she was still in a tremendous amount of pain in her back and pelvis and unable to walk, and she was then directed from the surgery center here to the ER. Past medical history includes anxiety/depression, inflammatory bowel disease, osteoporosis past surgical history includes a prior orthopedic procedure on her left arm, and cholecystectomy no alcohol no tobacco Admission Exam Per Admitting Provider awake alert oriented pleasant but laying very still in the bed. HEENT normocephalic atraumatic mucous membranes moist. Lungs are clear to auscultation bilaterally no rales rhonchi or wheeze with good effort. Cardio is regular without rubs murmurs or gallops. Abdomen is soft nondistended nontender no masses organomegaly. Extremities without sinus clubbing or edema no calf tenderness. Neuro shows cranial nerves II through XII to be grossly intact gross motor and sensory intact with the exception of her left arm that is still numb from a nerve block. Skin shows no rashes no pallor or icterus. Labs and diagnostics noted Principal Diagnosis Multiple bone frature, non surgical management. Discharge Exam Constitutional: Well appearing, No acute distress. HEENT: Atraumatic, Normocephalic, No conjunctival injection CVS: well perfused Respiratory: No increased work of breathing GI: Nondistended MSK: Brace on her shoulders attached to her waist Skin: Warm, Dry, No rashes Neuro: Alert, Oriented to TPP, No Focal deficit Psych: Mood and Affect congruent, Cooperative on exam Constitutional WD/WN, vitals as above well developed; no acute distress Eyes PERRL, conjunctivae normal, anicteric sclerae ENMT external ear and nose normal, oropharynx normal Ears: no hearing impairment Neck trachea midline, no thyromegaly trachea midline Respiratory normal respiratory effort, lungs clear to auscultation normal respiratory effort and + respiratory distress; no labored breathing and no retractions Auscultation: lungs clear to auscultation bilaterally Cardiovascular RRR, no murmur, no edema Rate/Rhythm: regular rate and regular rhythm Chest (Breasts) normal inspection/palpation of breasts Chest: normal inspection of chest Discharge Data Allergies Allergy/AdvReac Type Severity Reaction Status Date / Time diclofenac Allergy Severe Anaphylaxis Verified 05/26/25 17:54 Consultations 05/26/25 16:17 ED Decision to Admit Stat Ordered Studies 05/26/25 14:22 CT lumbar spine wo con Stat CT pelvis wo con Stat 05/26/25 14:27 CT head/brain wo con Stat 05/26/25 14:32 CT cervical spine wo con Stat Hospital Course (1) Anxiety: (2) Inflammatory bowel disease: (3) Fracture of left superior pubic ramus: Jocelyn Kumar is a very pleasant Barbadian speaking 70 Y O female with PMH of IBD and Anxiety disorder presented with low back pain and ambulatory dysfunction. She never had official diagnosis of osteoporosis before, never had DEXA scan done, however she fell 3 days ago and was found to have closed left olecranon fracture. Imaging reveals fracture in multiple sites including acute fractures of left L2, L3 and L4 Transverse processes , Non displaced fracture of right sacral miguel, parasymphyseal left superior pubic ramus and mostly looks osteoporotic. Olecranon fracture is surgically repaired. The other fractures are nonsurgical. She was admitted for pain management. OT/PT recommended rehab placement, however due to pt's has financial barrier, she is not able to follow rehabilitation. She would rather do some sessions of home physical therapy and occupational therapy out of pocket and information has been provided to patient, coordinated by OT/PT in house. #Multiple fractures: - Admitted for pain control; pain optimized. - Send home few oxycodone. - Can take OTC tylenol and ibuprofen. - Pt's multiple fracture seemingly osteoporotic we recommend pt to continue calcitonin nasla spray. - Plan to start Alendronate 2 weeks after discharge. - Continue Vitamin D and calcium supplementation. - Continue Lidocaine patch. - Continue home physical therapy. - Education provided on extensive lifestyle modification, appropriate care of pt, ans nutritional support. #Inflammatory bowel disease - Mesalamine 800 mg 3 times daily as per home dosing # Anxiety - sertraline 150 mg daily, Xanax 1 mg at bedtime as needed insomnia, as per home dosing #Social Situation: Pt visiting daughter from [place] recently. She has PCP in [place] and had been using her medication from there. Pt having travel insurance, which has limited terms and she can't afford most expenses of healthcare. Hence recommending pt to establish in [facility] for continuity of care. Daughter and Son in law were assisted with probable alternatives in her care. OT/PT coordinated to teach care at home and also provided contact detail of home health agency who would do PT on benedict basis. Total Time Total Time Spent Total Time Spent (In Minutes): See attending's attestation Discharge Plan Discharge Items Patient Disposition: Home - Self-Care Reason For Visit: MULTIPLE FRACTURES, PAIN, GAIT DYSFUNCTION Discharge Diagnosis: Multiple fracture in lumbar vertebra, pubic rami, olecranon process Condition on Discharge: Fair Activity: Resume your previous activity Non-emergency contact: Primary Care Provider Call non-emergency contact if: your symptoms worsen and your pain is concerning for you Follow-up/Referrals: PCP,NO [Primary Care Provider] - Diet: Regular Addtl Attending Provider Instructions: You were admitted to the hospital for pain control secondary to multiple fractures. You never had DEXA scan to diagnose osteoporosis for you before, but the nature of fracture looks like you have osteoporosis. You were treated with multiple pain medications including opioids and Brace use. Most of your fractures are likely osteoporotic, and you do not need other surgery for this. However this will take a long time to heal. Regular physical therapy and occupational therapy should help you getting your strength to optimum level. Continued use of brace will help you with pain. It important that you have PCP follow up regularly after hospital discharge. You will also need to start medication for osteoporosis, it will help you not lose other bones which are not osteoporotic and build more strength, ultimately reducing the probability of fracture in future. Post- discharge physical therapy is alvarez in your recovery, we strongly recommend you to follow them per your connivence. Given your challenging social situation we tried best to coordinate with physical therapy team that works best on for your situation and there are definitely some A discharge summary will be sent to your primary care physician to ensure continuity of care. Please bring this discharge summary with you to your next office appointment so that your provider can review it at that time. Medications: Your medication list has been reviewed and reconciled upon discharge to ensure accuracy and continuity of care. An updated list of all your medications is included with your hospital discharge paperwork. Please review this list closely and make note of any changes to your medications. Oxycodone 5 mg sent to pharmacy. You have been taking 1 tablet (5mg) every 6 hours for pain. You may take 2 tabs (10mg) if you are having severe pain. Do not take oxycodone with alprazolam. You may take ibuprofen 600 mg every 6 hours and alternate with acetaminophen 500 mg every 6 hours. Alendronate sent to pharmacy. Please start in 2 weeks. Take one tablet weekly with full glass of water and remain upright for 30 min. Follow up appointments: - Make a follow up appointment with your PCP within the next week. Discussed [facility] or [facility]. It is very important that you follow up with them shortly after discharge from the hospital. Please follow recommendation as per contact numbers given to you during discharge - Keep all of your follow up appointments as already scheduled. If you cannot make an appointment, notify your provider CONTACT YOUR PRIMARY CARE PROVIDER if you experience any of the following: - Difficulty following your treatment plan - Difficulty taking any of your medications CALL 911 OR GO TO THE EMERGENCY DEPARTMENT if you experience any of the following: - Sudden, severe abdominal pain or nausea/vomiting - Severe chest pain or chest pain that radiates to your jaw or arm - Sudden, severe shortness of breath or difficulty breathing Pending Studies at Discharge: No Stand-Alone Forms: My [employer], Smoking Cessation Medications and DC Order Prescriptions: New oxycodone 5 mg tablet 5 - 10 mg PO Q6H PRN (Reason: pain) 7 Days Qty: 50 0RF Rx Instructions: Take 1 tablet (5 mg) for mild/moderate pain or take 2 tablets (10 mg) for severe pain every 6 hours ergocalciferol (vitamin D2) [Vitamin D2] 1,250 mcg (50,000 unit) capsule 1,250 mcg PO DAILY Qty: 30 0RF calcium carbonate 500 mg calcium (1,250 mg) tablet 500 mg PO DAILY Qty: 30 0RF calcitonin (salmon) 200 unit/actuation spray,non-aerosol 1 spray intranasal DAILY Qty: 3.7 0RF alendronate 70 mg tablet 70 mg PO .week 70 Days Qty: 10 0RF lidocaine 5 % adhesive patch,medicated 1 patch topical DAILY Qty: 15 0RF Rx Instructions: leave on most painful area for up to 12 hrs Continued oxycodone 5 mg tablet 5 mg PO Q6H PRN (Reason: pain) Qty: 14 0RF Discharge Orders: Discharge Order (Routine); Ordered 05/31/25 Ordered By: Jordana Clement Admission Data Admit Date/Time: 05/26/25 17:33 Attending Provider: Mickie Salazar Admit Provider: Rocky Chavez Primary Care Provider: PCP,NO Other Providers: Rocky Chavez; [facility]; [facility]; [place] Other Interventions: Discharge Summary Assessment (RN) Last Done: 05/31/25 15:20 Supervising Physician Co-Signing Physician Notes I personally examined the patient and verified alvarez points of history and exam, discussed case, and agree with decision making and plan documented by Dr. Clement. Patient is a 70-year-old Barbadian speaking female with past medical history of inflammatory bowel disease and anxiety on admission for multiple fractures fo llowing a fall at home. Patient is currently visiting her daughter from [place]. She fell from a ladder while cleaning at home. Patient was seen in the emergency room 05/24/2025 and diagnosed with a close olecranon fracture. [facility] and had surgical repair of right olecranon on 05/22/2025. Patient then returned to emergency room for admission due to ambulatory dysfunction. Further CT workup revealed left L2, L3, and L4 transverse process fractures, nondisplaced right sacral rosalind fracture, and nondisplaced left superior pubic ramus fracture. No evidence of fracture or subluxation of cervical spine on cervical spine CT and no evidence of acute intracranial findings on head CT. Imaging revealed osteopenic skeletal structures. Patient reports no past diagnosis of osteopenia or osteoporosis. Case management reported patient's travel insurance would not pay for rehabilitation and possibly hospitalization due to pre-existing condition. Patient's daughter and son-in-law requested discharge to take patient home due to concerns of financial impact. Prescription for oxycodone provided on discharge, PDMP checked and appropriate. Patient recommended to continue calcitonin and will start of alendronate in 2 weeks. Recommendation for physical therapy locally was made to family. Advise follow-up at [facility] or [facility] outpatient. Total attending time: 52 minutes
[2025-05-31 15:22] VITALS: PULSE 73
[2025-05-31] MEDS ORDERED: CHECK SCOPOLAMINE PATCH PLACEMENT SCH (16:00)
== END 2025-05-31 16:02 | disposition home or self-care (01) | DRG 543 ==
LOC: ED 13:56 → INTOOBSV 17:33 → 3W 17:33 → SUATTDRO 17:33 → 3W 22:14